=== PATIENT | male | born 1965 | race Caucasian/White ===

== ENCOUNTER 2016-12-04 10:50 | Outpatient (CLI) | payer BC ==
[~2016-12-04] VITALS: Ht 170.2 cm; Wt 104.5 kg
--- NOTE | ~2016-12-04 | HEMODYNAMI ---
PATIENT:ANGEL REAL MEDICAL RECORD: [id number] : 63 LOCATION:D.CAT ADMISSION DATE: 12/04/16 Generatedon:12/04/201613:52 Patient name: ANGEL REAL Patient #: [id number] : 1965 Date of study: 12/04/2016 Page: Of Hemodynamic Procedure Report Patient Data Patient Demographics Procedure consent was obtained First Name: ANGEL Gender: Male Last Name: ADDIE : 1965 Patient #: [id number] Age: 51 year(s) Race: Unknown SSN: [id number] Additional ID: [id number] Contact details Address: [address] [place] [address] [address] State: [place] City: [place] Zip code: [address] Past Medical History Allergies: No known allergies Admission Admission Data Admission Date: 12/04/2016 Admission Time: 10:50 Arrival Date: 12/04/2016 Arrival Time: 0:00 Admit Source: Other Insurance Payor: Private health insurance Height (in.): 71 BSA: 2.23 (m2) Height (cm.): 180.34 BMI: 31.8 (kg/m2) Weight (lbs.): 228 Weight (kg.): 103.42 Lab Results Lab Result Date: 12/04/2016 Lab Result Time: 0:00 Biochemistry Name Units Result Min Max BUN mg/dl 20 --(----)*- 7 18 Creatinine mg/dl 1.1 --(--*-)-- 0.6 1.3 CBC Name Units Result Min Max Hemoglobin g/dl 14.7 --(-*--)-- 13.5 17.5 Procedure Procedure Types Cath Procedure Diagnostic Procedure [facility] w/Coronaries Miscellaneous Procedures Moderate Sedation up to 15 minutes Procedure Description Procedure Date Procedure Date: 12/04/2016 Procedure Start Time: 13:35 Procedure End Time: 13:51 Procedure Staff Name Function Michael Tejeda MD Performing Physician Anabel Counts RT Scrub Kathleen Grimes RN Nurse Mame Douglass RT Monitor Procedure Data Cath Procedure Fluoroscopy Diagnostic fluoroscopy Total fluoroscopy Time: 3.1 time: 3.1 min min Diagnostic fluoroscopy Total fluoroscopy dose: 293 dose: 293 mGy mGy Contrast Material Contrast Material Type Amount (ml) Isovue 300 60 Entry Location Entry Primary Successful Side Size Upsize Upsize Entry Closure Benjamin ccessful Closure Location (Fr) 1 (Fr) 2 (Fr) Remarks Device Remarks Radial Right 6 Fr Mechanical tr artery Short Compression Estimated blood loss: 10 ml Diagnostic catheters Device Type Used For End Catheter Placement Terumo 5Fr Fito 110cm Procedure catheter Diagnostic Infinity 5Fr Procedure AR MOD Catheter Procedure Complications No complications Procedure Medications Medication Administration Route Dosage Oxygen NC 2 l/min Heparin Flush Bag added to field 2 bags (1000units/500ml NS) Lidocaine 2% added to field 20 Radial Cocktail added to field 1 syringe (Verapomil 2mg/Nitro 400mcg/Heparin 1500units) Fentanyl I.V. 50 mcg Versed I.V. 1 mg Fentanyl I.V. 50 mcg Versed I.V. 1 mg Fentanyl I.V. 25 mcg Versed I.V. 0.5 mg Fentanyl I.V. 25 mcg Versed I.V. 0.5 mg Radial Cocktail I.A. 1 syringe (Verapomil 2mg/Nitro 400mcg/Heparin 1500units) Hemodynamics Rest BSA: 2.23 (m2) HGB: 14.7 (g/dl) O2 Consumption: Estimated: 259.37 (ml/min) O2 Co nsumption indexed: Estimated:116.31 (ml/min/m) Heart Rate: 62 (bpm) Pressure Samples Time Site Value (mmHg) Purpose Heart Use Rate(bpm) 13:39 LV 156/2,12 Snapshot 68 13:40 AO 129/77(97) Pullback 66 13:40 LV 158/1,12 Pullback 66 Gradients Valve Time Site 1 Site 2 Mean SEP/DFP Peak To Heart Use (mmHg) (sec/min) Peak Rate (mmHg) (bpm) Aortic 13:40 LV AO 14 16 29 66 158/1,12 129/77(97) Calculations Valve P-P Mean Valve Index Valve Source Name Gradient Area Flow (cm2) Aortic 29 14 29 14 Snapshots Pre Cath Intra NCS Post Cath Vital Signs Time Heart Resp SPO2 NIBP (mmHg) Rhythm Pain Sedation Rate (ipm) (%) Status Level (bpm) 13:21:15 68 16 98 177/99(145) NSR 0 (11) 10(A) , No pain 13:25:43 54 18 99 172/96(163) NSR 0 (11) 9(A) , No pain 13:30:13 53 17 98 168/99(113) NSR 0 (11) 9(A) , No pain 13:34:42 55 18 94 141/99(116) NSR 0 (11) 9(A) , No pain 13:39:04 69 16 93 141/84(112) NSR 0 (11) 9(A) , No pain 13:43:16 61 17 94 134/83(114) NSR 0 (11) 9(A) , No pain 13:47:31 60 16 93 144/89(122) NSR 0 (11) 9(A) , No pain Medications Time Medication Route Dose Verified Delivered Reason Notes Effectiveness by by 13:20:19 Oxygen NC 2 l/min Kathleen Kathleen used for Grimes Grimes inspector wire rope RN 13:20:27 Heparin Flush added 2 bags Kathleen Kathleen used for Bag to Grimes Grimes procedure (1000units/500ml [facility] RN RN NS) 13:20:38 Lidocaine 2% added 20ml Kathleen Kathleen used for to vial Grimes Grimes procedure field RN RN 13:22:24 Radial Cocktail added 1 Kathleen Kathleen used for (Verapomil to syringe Grimes Grimes procedure 2mg/Nitro RN RN 400mcg/Heparin 1500units) 13:22:43 Fentanyl I.V. 50 mcg Kathleen Kathleen for sedation Sydney Grimes RN RN 13:22:48 Versed I.V. 1 mg Kathleen Kathleen for sedation Sydney Grimes RN RN 13:29:35 Fentanyl I.V. 50 mcg Kathleen Kathleen for sedation Sydney Grimes RN RN 13:29:38 Versed I.V. 1 mg Kathleen Kathleen for sedation Sydney Grimes RN RN 13:31:37 Fentanyl I.V. 25 mcg Kathleen Kathleen for sedation Sydney Grimes RN RN 13:31:40 Versed I.V. 0.5 mg Kathleen Kathleen for sedation Grimes Grimes RN RN 13:36:01 Fentanyl I.V. 25 mcg Kathleen Kathleen for sedation Sydney Grimes RN RN 13:36:05 Versed I.V. 0.5 mg Kathleen Kathleen for sedation Sydney Grimes RN RN 13:38:30 Radial Cocktail I.A. 1 Kathleen Michael for (Verapomil syringe Sydney Tejeda MD vasodilation 2mg/Nitro RN 400mcg/Heparin 1500units) Procedure Log Time Note 13:02:56 Anabel Counts RT(R) sent for patient. Start room use. 13:03:00 Time tracking: Regular hours 13:03:05 Plan of Care:Hemodynamics will remain stable., Cardiac rhythm will remain stable., Comfort level will be maintained., Respiratory function will remain adequate., Patient/ family verbilizes understanding of procedure., Procedure tolerated without complication., Recovers from procedure without complications.. 13:09:37 H&P Date Dictated: 11/22/2016 Within 30 days and on chart., H&P Addendum completed by physician on day of procedure. (MUST COMPLETE FOR ALL OUTPATIENTS). 13:09:49 Diagnostic Cath Status : Elective 13:10:59 Arrival Date: 12/04/2016 12:00:00 AM 13:11:02 Admit Source: Other 13:11:13 Patient Height : 180.34 inches 13:11:23 Patient Weight : 103.42 lbs 13:11:23 Insurance Payor : Private health insurance 13:11:54 Procedure type changed to Cath procedure, Diagnostic procedure, LHC, LHC w/Coronaries, Miscellaneous Procedures, Moderate Sedation up to 15 minutes 13:13:47 Patient received from Outpatients to CCL 3 Alert and oriented. Tansferred to table in Supine position. 13:13:49 Warm blankets applied, and racquel hugger turned on for patient comfort. 13:13:49 Correct patient and procedure confirmed by team. 13:13:54 Pre-procedure instructions explained to patient. 13:13:57 Family in waiting room. 13:13:59 Patient NPO since Midnight. 13:14:18 Patient allergic to No known allergies 13:14:21 Is the patient allergic to Iodine/contrast media? No. 13:14:26 Is patient on blood thinner?No 13:14:29 Patient diabetic? No. 13:14:36 Snore? Yes 13:14:37 Sleep apnea? No 13:14:45 Dentures? No ? 13:15:06 IV patent on arrival in left forearm with 0.9% NaCl at [facility]. 13:15:15 Lab results completed and on chart. 13:16:01 Right Radial & Right Groin area was prepped with chlora-prep and draped in sterile fashion 13:16:05 Sharps counted by scrub and verified by R.N. 13:16:08 Physician paged 13:16:12 Physician arrived 13:16:18 --------ALL STOP TIME OUT------ 13:16:19 Final Timeout: patient, procedure, and site verified with staff and physician. All members of the team are in agreement. 13:16:21 Right Radial & Right Groin site verified by team. 13:16:29 Sedation plan: IV Moderate Sedation Versed, Fentanyl 13:16:39 Physical assessment completed. ASA score P 2 - A patient with mild systemic disease as per Michael Tejeda MD. 13:17:16 Lab Result : Creatinine 1.1 mg/dl 13:17:16 Lab Result : BUN 20 mg/dl 13:17:16 Lab Result : Hemoglobin 14.7 g/dl 13:17:31 Signed procedure consent form obtained from patient. 13:17:33 ECG and BP/O2 sat monitors applied to patient. 13:19:54 Vital chart was started 13:20:19 Oxygen 2 l/min NC was given by Kathleen Grimes RN; used for procedure; 13:20:27 Heparin Flush Bag (1000units/500ml NS) 2 bags added to field was given by Kathleen Grimes RN; used for procedure; 13:20:38 Lidocaine 2% 20ml vial added to field was given by Kathleen Grimes RN; used for procedure; 13:22:21 Baseline sample Acquired. 13:22:24 Radial Cocktail (Verapomil 2mg/Nitro 400mcg/Heparin 1500units) 1 syringe added to field was given by Kathleen Grimes RN; used for procedure; 13:22:25 Rhythm: sinus rhythm 13:22:26 Full Disclosure recording started 13:22:38 Acist Syringe opened to sterile field. 13::39 Bag Decanter opened to sterile field. 13:22:39 Medline Cath Pack opened to sterile field. 13:22:40 [place] 260cm J .035 wire opened to sterile field. 13::42 Acist Hand Control opened to sterile field. 13:22:42 Acist Manifold opened to sterile field. 13:22:43 Fentanyl 50 mcg I.V. was given by Kathleen Grimes RN; for sedation; 13:22:44 Diagnostic Infinity 5Fr Multipack catheter opened to sterile field. 13:22:46 Tegaderm 4 x 4 opened to sterile field. 13:22:48 Versed 1 mg I.V. was given by Kathleen Grimes RN; for sedation; 13:29:35 Fentanyl 50 mcg I.V. was given by Kathleen Grimes RN; for sedation; 13:29:38 Versed 1 mg I.V. was given by Kathleen Grimes RN; for sedation; 13:31:37 Fentanyl 25 mcg I.V. was given by Kathleen Grimes RN; for sedation; 13:31:40 Versed 0.5 mg I.V. was given by Kathleen Grimes RN; for sedation; 13:35:36 Procedure started. 13:35:44 Zero performed for pressure channel P1 13:35:53 Zero performed for pressure channel P1 13:36:01 Fentanyl 25 mcg I.V. was given by Kathleen Grimes RN; for sedation; 13:36:05 Versed 0.5 mg I.V. was given by Kathleen Grimes RN; for sedation; 13:36:20 A 6 Fr Short sheath was inserted into the Right Radial artery 13:38:30 Radial Cocktail (Verapomil 2mg/Nitro 400mcg/Heparin 1500units) 1 syringe I.A. was given by Michael Tejeda MD; for vasodilation; 13:39:55 Use device set Femoral Dx 13:40:23 A Terumo 5Fr Fito 110cm catheter was advanced over the wire and used for Procedure. 13:40:35 LV gram done using CANALES 13:40:41 EF : 60 % 13:41:06 Use device set Radial Dx 13:41:13 Terumo 6Fr Slender Glidesheath opened to sterile field. 13:41:49 LCA angiography performed. 13:45:04 Catheter removed. 13:45:20 A Diagnostic Infinity 5Fr AR MOD Catheter was advanced over the wire and used for Procedure. 13:45:36 RCA angiography performed. 13:46:44 Catheter removed. 13:48:20 Sheath removed intact; hemostasis achieved with Mechanical Compression to the Right Radial artery. 13:48:59 Terumo TR Band Large opened to sterile field. 13:48:59 Tegaderm 4 x 4 opened to sterile field. 13:49:06 Procedure ended.(Physican Out) 13:49:33 Fluoroscopy time 03.10 minutes. 13:49:39 Flurop Dose total: 293 13:49:39 Fluoroscopy dose: 293 mGy 13:49:43 Contrast amount:Isovue 300 60ml. 13:49:46 Sharps counted by scrub and verified by R.N. 13:49:50 TR band inflated with 11cc of air. 13:49:52 Insertion/operative site no bleeding no hematoma. 13:49:54 Post Procedure Pulses reassessed and unchanged 13:49:59 Post procedure rhythm: unchanged. 13:50:03 Estimated blood loss: 10 ml 13:50:04 Post procedure instruction explained to patient.Patient verbalizes understanding. 13:50:12 Procedure and supply charges have been captured, reviewed, submitted and are correct. 13:51:03 Procedure Complication : No complications 13:51:09 See physician's report for complete and final results. 13:51:10 Vital chart was stopped 13:51:15 Report given to Outpatients. 13:51:17 Patient transfered to Outpatients with Stretcher. 13:51:20 Procedure ended. 13:51:20 Full Disclosure recording stopped 13:51:27 End room use (Document Last) Device Usage Item Name Manufacture Quantity Catalog Hospital Part Current Minimal Lot# / Number Charge Number Stock Stock Serial# Code Acist Acist 1 62397 [id number] 366535 032584 20 Syringe [employer] Bag Microtek 1 2001S 524032 81883 294463 5 Periscope[employer] Inc. Medline Cardinal 1 [id number] 717582 08172 327284 [address] Trak.io [facility] [place] [facility] [place] 1 112748 221749 363275 539785 30 260cm J .035 wire Acist Hand Acist 1 29247 286994 580517 836574 5 Control [employer] Inc Acist Acist 1 77642 764946 114911 974894 5 Manifold [employer] Inc Diagnostic Cardinal 1 CH9660 283595 58642 524403 30 [facility] 5Fr Multipack catheter Tegaderm 4 3M 2 1626W 183773 983827 899610 5 x 4 Terumo 5Fr Terumo 1 40-4031 541953 101127 161899 5 Fito 110cm catheter Terumo 6Fr Terumo 1 [id number] 188537 948492 048706 40 Slender Glidesheath Diagnostic Cardinal 1 [id number] 251534 482487 131360 15 [facility] 5Fr AR MOD Catheter Terumo TR Terumo 1 [id number] 952915 695158 40 Band Large Signature Audit [place] Stage Time Signature Unsigned Intra-Procedure 12/04/2016 Mame Douglass 1:52:01 PM RT(R) Signatures Monitor : Mmae Douglass Signature : RT Date : Time : [place] [id number] [place] [address]
[2016-12-04 11:23] VITALS: BP 182/88; Ht 170.2 cm; Wt 104.5 kg
[2016-12-04] MEDS ORDERED: COZAAR100 MG PO (11:26)
[2016-12-04] MEDS ORDERED: BAYER CHEWABLE81 MG PO (11:26)
[2016-12-04] MEDS ORDERED: CALAN80 MG PO (11:27)
[2016-12-04 11:42] LABS: BASOPHILS 1.7 % (0.0-2.0); EOSINOPHILS 3.7 % (0-7); HEMATOCRIT 43.8 % (42.0-54.0); HEMOGLOBIN 14.7 g/dL (13.5-17.5); IMMATURE GRANULOCYTES 0.2 % (0-5); LYMPHOCYTES 25.1 % (15-50); MCH 30.1 pg (26.0-34.0); MCHC 33.6 g/dL (31.0-37.0); MCV 89.6 fL (80.0-100.0); MEAN PLATELET VOLUME 10.7 fL (7.4-10.4); NEUTROPHILS 58.3 % (40-80); PLATELET COUNT 184 10x3/uL (130-400); RBC 4.89 10x6/uL (4.20-6.10); RDW 13.2 % (11.5-14.5); WBC 4.8 10x3/uL (4.8-10.8)
[2016-12-04 11:57] LABS: ANION GAP 11.8 mmol/L (8-16); CALCIUM 9.7 mg/dL (8.5-10.1); CARBON DIOXIDE 29.3 mmol/L (21.0-32.0); CREATININE - SERUM 1.1 mg/dL (0.6-1.3); POTASSIUM - SERUM 4.1 mmol/L (3.5-5.1)
--- NOTE | 2016-12-04 14:18 | NUR ---
1400 RECEIVED PT FROM [facility], PT IS ALERT, DENIES ANY C/O. TR BAND CDI, NO BLEEDING OR HEMATOMA NOTED. CAP REFILL BRISK RIGHT HAND, FINGERS PINK AND WARM TO TOUCH. PT DENIES ANY C/O. CALL LIGHT IN REACH.
--- NOTE | 2016-12-04 14:21 | NUR ---
1415 SANDWICH AND COFFEE SERVED, TR BAND CDI, FAMILY AT BEDSIDE. CALL LIGHT IN REACH, PT DENIES ANY C/O.
--- NOTE | 2016-12-04 14:47 | NUR ---
1445 PT DENIES ANY C/O. TR BAND CDI, FAMILY AT BEDSIDE. CALL LIGHT IN REACH. TOLERATED DIET WITH NO C/O NAUSEA.
--- NOTE | 2016-12-04 16:49 | NUR ---
1550 PT DENIES ANY C/O. TR BAND DEFLATION HAS BEGUN. NO BLEEDING OR HEMATOMA NOTED AT CATH SITE. 1620 BANDAID PLACED TO CATH SITE, TR BAND IS OFF. NO BLEEDING OR HEMATOMA NOTED. IV DC'D WITH CATH INTACT. PT IS DRESSING FOR DC. 1635 PT HAS AMBULATED TO THE BATHROOM AND VOIDED QS. CATH SITE REMAINS FREE FROM BLEEDING OR HEMATOMA. DC INSTRUCTIONS REVIEWED AND PT VERBALIZES UNDERSTANDING. PT ESCORTED TO PRIVATE AUTO VIA WC BY STAFF WITH DRIVING HIM HOME.
--- NOTE | 2017-01-02 08:17 | OP ---
PATIENT NAME: ANGEL REAL MEDICAL RECORD: [id number] :63 LOCATION:D.CAT ADMISSION DATE: SURGEON: ALEXANDRA VEE M.D. DATE OF OPERATION: 12/04/2016 REFERRING PHYSICIAN: Dr. Conrad Bonner at [place], [place]. PROCEDURES PERFORMED: 1. Selective coronary angiography. 2. Left heart catheterization with ventriculogram. INDICATION: A 51-year-old gentleman who presents with abnormal HeartSaver CT. Recent Cardiolite stress test revealed inferior apical ischemia. EQUIPMENT USED: A 5-[place]ian Fito catheter, AR modified catheter. TECHNIQUE: A 6-Zambian sheath was inserted in retrograde fashion in the right radial artery. Next, selective coronary angiography was performed in standard 5-Z[place]ian Fito catheter. The right coronary artery was cannulated with the AR modified catheter. Left heart catheterization was performed using a Fito catheter. CORONARY ANATOMY: 1. Left main: Left main trunk is moderate in caliber. It gives rise to the LAD and circumflex. There is no obstruction. 2. LAD: This is a moderate caliber vessel extending to the apex. The proximal vessel has a smooth 30% stenosis. 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 3. Circumflex: This vessel is moderate in caliber. The mid to distal vessel has a smooth 40% stenosis. 4. Right coronary: This vessel is moderate in caliber and codominant. The mid vessel has a smooth 30% to 40% stenosis. 5. Left ventricle: Left ventricle is normal in size and function. No wall motion abnormalities are noted. Estimated ejection of 60%. IMPRESSION: 1. Mild coronary artery disease. 2. Normal left ventricular function. RECOMMENDATIONS: This patient had a positive stress test. By angiogram, he has mild disease. He is having no symptoms of angina at this point. At this time, we will continue with medical management. TRANSINT:[id number] Voice Confirmation ID: [id number] DOCUMENT ID: [id number] ALEXANDRA VEE M.D. at 0817 CC: [id number] DICTATION DATE: 12/04/16 1354 INHALATION THERAPY AIDE: 12/04/16 1549 DEP CLI 12/04/[address] [address]
== END 2016-12-04 16:35 | disposition home or self-care (01) ==
LOC: D.CATH 10:50
PROVIDERS: Internal Medicine Cardiovascular Disease
DX: I25.10 Atherosclerotic heart disease of native coronary artery without angina pectoris (principal); I10 Essential (primary) hypertension; F17.200 Nicotine dependence, unspecified, uncomplicated; E78.5 Hyperlipidemia, unspecified